=== PATIENT | female | born 1945 | race Caucasian/White ===

== ENCOUNTER 2019-07-04 20:35 | Emergency (ER) | payer SELFPAY ==
[~2019-07-04] VITALS: Ht 157.5 cm; Wt 71.0 kg
[~2019-07-04 20:35] MED LIST: BENA20TA10 PO
[2019-07-04] MEDS ORDERED: IBUPROFEN 600MG TABLET PO ONE (21:45)
[2019-07-04] MEDS ORDERED: HYDROCODONE/ACETAMINOPHEN 5/325MG TABLET PO ONE (21:45)
[2019-07-04] MEDS ORDERED: TETANUS, DIPHTHERIA, PERTUSSIS VAC/PF 0.5ML (>7YR OLD) IM ONE (22:45)
[2019-07-04 23:58] VITALS: BP 158/89
== END 2019-07-04 23:59 | disposition home or self-care (01) ==
LOC: ER 20:35
DX: S52.501A Unspecified fracture of the lower end of right radius, initial encounter for closed fracture (principal); S52.201A Unspecified fracture of shaft of right ulna, initial encounter for closed fracture; W01.198A Fall on same level from slipping, tripping and stumbling with subsequent striking against other object, initial encounter; Y93.9 Activity, unspecified; Y92.9 Unspecified place or not applicable; I10 Essential (primary) hypertension
CPT/HCPCS: 70486; 73130; 90471; 90715; 99284; A4565